=== PATIENT | male | born 1935 | race Caucasian/White ===

== ENCOUNTER 2021-04-18 08:16 | Observation (INO) ==
[2021-04-18] MEDS ORDERED: DIAZEPAM 5 MG TABLET PO ONE (08:35)
[2021-04-18] MEDS ORDERED: LIDOCAINE PATCH TOPICAL ONE (08:35)
--- NOTE | 2021-04-18 08:42 | Emergency Department Note ---
HPI General Chief complaint: Fall Stated complaint: Low back pain, fall off ladder Time Seen by Provider: 04/18/21 08:25 Source: patient and EMS Mode of arrival: EMS Limitations: no limitations History of Present Illness HPI Narrative: 85-year-old male with no past medical history presenting with low back pain. Patient states he was chipping ice off the roof and fell off a ladder about a day and a half ago. He landed on his back. Denies hitting his head or losing consciousness. States he has had persistent back pain since then. He has tried using ice packs and heating pads with minimal relief. States that at times he has to crawl to get around his house. No headache, blurry vision, neck pain, chest pain, shortness of breath, numbness, weakness, paresthesias, or bowel or bladder incontinence. States the only other thing he is taken for pain is aspirin. No other complaints. Related Data Home Medications Medication Instructions Recorded Confirmed aspirin 325 mg tablet (Lite Coat 325 mg PO DAILY 08/23/16 08/23/16 Aspirin) omeprazole 20 mg tablet,delayed 20 mg PO PRN PRN 08/23/16 08/23/16 release Allergies Allergy/AdvReac Type Severity Reaction Status Date / Time No Known Drug Allergies Allergy Verified 04/18/21 08:17 Review of Systems ROS ROS Narrative: Narrative: Constitutional: Denies fever or chills Eyes: Denies vision change ENT ED: Denies throat pain Cardiovascular: Denies chest pain or palpitations Respiratory: Denies shortness of breath or cough Gastrointestinal: Denies abdominal pain, nausea or vomiting Genitourinary: Denies dysuria, frequency or hematuria Musculoskeletal: Reports back pain; Denies joint swelling Integumentary: Denies rash Neurological: Denies headache, weakness, numbness, paresthesias or dizziness Psychiatric: Denies anxiety Endocrine: Denies fatigue Hematological/Lymphatic: Denies easy bleeding PFSH Narrative Patient History Narrative: Narrative: Medical/Surgical/Family History All Active Problems (Updated 04/18/21 @ 17:00 by Armin Payan MD) Nerve injury (Acute) Compression fracture of T11 vertebra (Acute) Fracture of transverse process of thoracic vertebra (Acute) Medical History (Updated 04/18/21 @ 17:00 by Armin Payan MD) Nerve injury Social History Smoking Status: Never smoker Exam Narrative Narrative: Narrative: General Limitations: no limitations General appearance: Present alert and in no apparent distress Head Head: Present atraumatic and normocephalic Eye Eye: Present normal appearance, PERRL and EOMI; Absent scleral icterus, conjunctival injection or nystagmus ENT ENT: Present mucous membranes moist Neck Neck: Present normal inspection, full ROM and trachea midline; Absent tenderness Chest Chest: Present symmetric chest wall rise Respiratory Respiratory: Present normal lung sounds bilaterally; Absent respiratory distress, wheezes, stridor or accessory muscle use Cardiovascular Cardiovascular: Present regular rate and normal rhythm; Absent systolic murmur or diastolic murmur Adbominal Abdominal: Present soft; Absent distention, tenderness, guarding, rebound or ri gidity Extremities Extremities: Present full ROM and other (Mild ecchymosis noted overlying the left upper arm; no tenderness to palpation, full range of motion of left shoulder and left elbow); Absent pretibial edema Back Back: Present normal inspection, L-S tenderness and spinous process tenderness; Absent CVA tenderness (R), CVA tenderness (L), straight leg raise (R) or straight leg raise (L) Neurological Neurological: Present alert, oriented X3 and CN II-XII intact; Absent motor sensory deficit Expanded Neurological Patient oriented to: Present person, place and time Speech: Absent expressive aphasia or dysarthria CRANIAL NERVES: EOM function (II, III, IV, ): Normal, facial sensation (V): Normal, facial palsy (VII): Normal, gag reflex (IX): Normal, spinal accessory function (XI): Normal and tongue deviation (XII): Normal CEREBELLAR FUNCTION: finger to nose: Normal Motor strength - LUE: 5/5 Motor strength - RUE: 5/5 Motor strength - LLE: 5/5 Motor strength - RLE: 5/5 UPPER MOTOR NEURON EXAM: matilda neglect: Normal SENSORY EXAM UPPER EXTREMITY: Normal: light touch SENSORY EXAM LOWER EXTREMITY: Normal: light touch Coma Scale Eye Opening: Spontaneous Coma Scale Motor Response: Obeys Commands Coma Scale Verbal Response: Oriented Coma Scale Total: 15 Psychiatric Psychiatric: Present normal affect and normal mood Skin Skin: Present warm (WNL) and dry Course Vital Signs Vital signs: Vital Signs Temperature 97.7 F 04/18/21 08:17 Pulse Rate 63 04/18/21 08:17 Respiratory Rate 16 04/18/21 08:17 Pulse Oximetry (%) 97 04/18/21 08:17 Temperature 97.7 F 04/18/21 08:17 Pulse Rate 56 L 04/18/21 16:56 Respiratory Rate 16 04/18/21 08:17 Blood Pressure 109/54 04/18/21 16:56 Pulse Oximetry (%) 94 04/18/21 16:56 MDM MDM Narrative Medical decision making narrative: 85-year-old male presenting with low back pain after fall. No neurologic deficits on exam, no bowel or bladder incontinence. Vital signs are normal. Will provide pain control, x-ray of the lumbar spine, and reevaluate. 1530: Patient unable to ambulate or get up on his own due to pain in his lower back, despite morphine, valium, and lidoderm patch. CT of the lumbar spine obtained which shows acute wedge compression fracture at T11, transverse process fractures at T9-T11, and spinous process fractures at T9 and T10. The fractures appear stable on CT. Given that patient cannot perform his ADLs right now due to pain, will attempt to find a nursing home facility for placement. 1630: Awaiting placement, will sign out to oncjoann TOLENTINO, Dr. Mcarthur. ED POC Tests ED POC Tests: RADU - SARS Antigen Negative Radiology Data Radiology results reviewed: Yes I reviewed the patient's radiology results. Radiology results narrative: Ordering Physician:Armin Payan M.D. Date of Service:04/18/21 Procedure(s):CT lumbar spine wo con History: Fell off ladder, compression fracture at T11 of undetermined age TECHNIQUE: The spine was imaged without contrast in axial plane from T9 to the lower sacrum. Sagittal and coronal reformats were created. The radiation exposure was limited using dose reduction technology. There are acute nondisplaced fractures involving the transverse processes bilaterally at T9, T10 and right side at T11. There is also an acute anterior wedge compression fracture with depression of superior endplate of T11. There is less than 20% loss in height. There is no retropulsion of bone into the central canal. There is low-level edema in the soft tissues anterior and lateral to this compressed vertebra. No hematoma is present. There are also longitudinally oriented fractures in the spinous processes of T9 and T10. No fracture is present in the lumbar spine. Mild spinal canal stenosis is present at T10-11 due to arthritis in the facets and hypertrophy of the ligamentum flavum. At T12-L1 there is mild spinal canal stenosis due to spurs and hypertrophy of ligamentum flavum. Similar finding is present at L2-3. Severe spinal canal stenosis is present at L3-4 and L4-5 due to large spurs are severe arthritis in the facets and hypertrophy of the ligamentum flavum. At L4-5 there is grade 1 spondylolisthesis due to severe arthritis in the facets. There is a medium-sized broad-based bulge and there is severe spinal canal and bilateral neural foraminal stenosis. The L5-S1 level has no central canal stenosis but there is arthritis in the facets causing narrowing of the foramina. Severe disc space narrowing is present at L1-L2, L2-3 and L3-4 with moderate narrowing at T12-L1. Severe pulmonary fibrosis is present in both lung bases. There is honeycombing in the periphery of the lung bases. Distal abdominal aorta is mildly dilated and measures 2.6 x 2.7 cm. IMPRESSION: Acute mild wedge compression fracture at T11 Fracture transverse processes at T9 T10 T11 and fractured spinous processes at T9 and T10 Severe spinal canal stenosis at L2-3, L3-4 and L4-[address] Payan was called with the report Interpreted and Authenticated by: Dawit Osman 04/18/21 Discharge Plan Patient/Caregiver Discharge Instructions Pt seen by ACTIVITY THERAPY TEACHER/PA only: No Clinical Impression: Compression fracture of T11 vertebra, Fracture of transverse process of thoracic vertebra Patient Disposition: Still a Patient Condition: Fair Follow up with: No,PCP [Referring] - Prescriptions: No Action aspirin [Lite Coat Aspirin] 325 MG Tablet 325 mg PO DAILY 0RF omeprazole 20 MG Tablet.Dr 20 mg PO PRN PRN (Reason: reflux) 0RF
--- NOTE | 2021-04-18 09:02 | XRay Report ---
HISTORY: Fell off ladder on Wednesday with worsening low back pain FINDINGS: There is mild anterior wedge compression fracture involving the superior endplate of T11. This was not present on the prior abdomen CT done on 06/28/10 and is of undetermined age. No other fracture is present. 9 mm grade 1 spondylolisthesis is present at L4-5 due to severe arthritis in the facets. This is a chronic stable finding. Moderate disc space narrowing is present at T12-L1, L1-L2, L2-3 and there is moderate narrowing at L3-4. A levoscoliotic curvature is present. Moderate size spurs have formed around the margins of the disc spaces. Large amount calcified plaque is present in the arteries throughout the abdomen and pelvis. IMPRESSION: Mild wedge compression fracture at T11 which is probably old. Severe degenerative disc disease at multiple levels Stable grade 1 spondylolisthesis at L4-5 Interpreted and Authenticated by: Dawit Osman 04/18/21
--- NOTE | 2021-04-18 11:43 | Cat Scan Report ---
History: Fell off ladder, compression fracture at T11 of undetermined age TECHNIQUE: The spine was imaged without contrast in axial plane from T9 to the lower sacrum. Sagittal and coronal reformats were created. The radiation exposure was limited using dose reduction technology. There are acute nondisplaced fractures involving the transverse processes bilaterally at T9, T10 and right side at T11. There is also an acute anterior wedge compression fracture with depression of superior endplate of T11. There is less than 20% loss in height. There is no retropulsion of bone into the central canal. There is low-level edema in the soft tissues anterior and lateral to this compressed vertebra. No hematoma is present. There are also longitudinally oriented fractures in the spinous processes of T9 and T10. No fracture is present in the lumbar spine. Mild spinal canal stenosis is present at T10-11 due to arthritis in the facets and hypertrophy of the ligamentum flavum. At T12-L1 there is mild spinal canal stenosis due to spurs and hypertrophy of ligamentum flavum. Similar finding is present at L2-3. Severe spinal canal stenosis is present at L3-4 and L4-5 due to large spurs are severe arthritis in the facets and hypertrophy of the ligamentum flavum. At L4-5 there is grade 1 spondylolisthesis due to severe arthritis in the facets. There is a medium-sized broad-based bulge and there is severe spinal canal and bilateral neural foraminal stenosis. The L5-S1 level has no central canal stenosis but there is arthritis in the facets causing narrowing of the foramina. Severe disc space narrowing is present at L1-L2, L2-3 and L3-4 with moderate narrowing at T12-L1. Severe pulmonary fibrosis is present in both lung bases. There is honeycombing in the periphery of the lung bases. Distal abdominal aorta is mildly dilated and measures 2.6 x 2.7 cm. IMPRESSION: Acute mild wedge compression fracture at T11 Fracture transverse processes at T9 T10 T11 and fractured spinous processes at T9 and T10 Severe spinal canal stenosis at L2-3, L3-4 and L4-[address] Payan was called with the report Interpreted and Authenticated by: Dawit Osman 04/18/21
[2021-04-18] MEDS ORDERED: morphine 4 MG/ML VIAL IV ONE ×3 (12:08→22:48)
--- NOTE | 2021-04-19 05:26 | Emergency Department Note ---
Course Vital Signs Vital signs: Vital Signs Temperature 36.5 C 04/18/21 08:17 Pulse Rate 63 04/18/21 08:17 Respiratory Rate 16 04/18/21 08:17 Pulse Oximetry (%) 97 04/18/21 08:17 Temperature 36.5 C 04/18/21 08:17 Pulse Rate 68 04/19/21 06:11 Respiratory Rate 16 04/18/21 08:17 Blood Pressure 118/79 04/19/21 06:01 Pulse Oximetry (%) 94 04/19/21 06:11 MDM MDM Narrative Medical decision making narrative: patient who presented to the previous physician found to have several spinal fractures after a fall off a ladder. He has intractable pain and the plan is to try and get him placed directly to assisted facility. Social work was unable to do that in time this evening,so he was signed out to me with anticip ated plan of further symptom control here in the ED as needed overnight and social work will once again try and attempt to place him tomorrow when they come back in. If unable at that time, patient will be admitted here tomorrow when a bed becomes available until placement can be arranged. On my evaluation patient was resting comfortably in bed after his previous analgesia but does confirm the pain is too much when attempting to get out of bed or ambulate around. Will be signed out to next physician at shift change. ED POC Tests ED POC Tests: RADU - SARS Antigen Negative Discharge Plan Patient/Caregiver Discharge Instructions Pt seen by OPERATING SYSTEMS PROGRAMMER/PA only: No Clinical Impression: Compression fracture of T11 vertebra, Fracture of transverse process of thoracic vertebra Patient Disposition: Still a Patient Condition: Fair Follow up with: No,PCP [Referring] - Prescriptions: No Action aspirin [Lite Coat Aspirin] 325 MG Tablet 325 mg PO DAILY 0RF omeprazole 20 MG Tablet.Dr 20 mg PO PRN PRN (Reason: reflux) 0RF
[2021-04-19] MEDS ORDERED: HYDROCODONE/APAP 7.5/325MG TABLET PO ONE (06:09)
[2021-04-19] MEDS ORDERED: morphine 4 MG/ML VIAL IV ONE (08:48)
--- NOTE | 2021-04-19 08:58 | Emergency Department Note ---
Course Course Course Narrative: I assumed care from Dr. Mcarthur at the change of shift. I evaluated the patient in person at 8:57 AM. He is sitting in a chair awake and alert in no acute distress. He has been working with physical therapy and has been able to ambulate a few steps with a walker but is still unable to perform his activities of daily living to the extent necessary for him to return home. We will continue to work on pain control and seek possible rehab placement. Patient is agreeable with the plan. Vital Signs Vital signs: Vital Signs Temperature 97.7 F 04/18/21 08:17 Pulse Rate 63 04/18/21 08:17 Respiratory Rate 16 04/18/21 08:17 Pulse Oximetry (%) 97 04/18/21 08:17 Temperature 97.7 F 04/18/21 08:17 Pulse Rate 72 04/19/21 08:37 Respiratory Rate 16 04/18/21 08:17 Blood Pressure 155/76 04/19/21 11:31 Pulse Oximetry (%) 96 04/19/21 08:37 MDM MDM Narrative Medical decision making narrative: Patient continued to have significant pain limiting his ability to ambulate in the emergency department. Has he is unsafe for discharge and there are no subacute rehab beds available we will admit to the hospital for further t reatment. The patient is agreeable with the plan. I discussed the patient's history examination and diagnostic findings with Dr. Stephenson, who agrees with the plan of care and accepts admission. Lab Data Result diagrams: 04/19/21 12:52 04/19/21 12:52 Labs: Lab Results 04/19/21 Range/Units 12:52 WBC 9.6 (4.5-11.0) K/mcL RBC 4.25 L (4.63-6.08) M/mcL Hgb 13.7 (13.7-17.5) g/dL Hct 39.4 L (40.1-51.0) % MCV 92.7 (80.0-100.0) fL MCH 32.2 (26.0-34.0) pg MCHC 34.8 (31.0-36.0) g/dL RDW 12.3 (11.5-14.5) % Plt Count 166 (140-440) K/mcL MPV 10.2 (7.4-10.4) fL Neut % (Auto) 79.0 H (38.0-78.0) % Lymph % (Auto) 10.7 L (15.5-49.0) % Snyder % (Auto) 9.5 (1.0-12.0) % Eos % (Auto) 0.3 (0.0-7.0) % Baso % (Auto) 0.5 (0.0-2.0) % Lymph # (Auto) 1.03 L (1.50-4.80) K/mcL Snyder # (Auto) 0.91 H (0.10-0.90) K/mcL Eos # (Auto) 0.03 (0.00-0.70) K/mcL Baso # (Auto) 0.05 (0.00-0.30) K/mcL Absolute Neutrophils 7.60 (1.80-8.00) K/mcL ED POC Tests ED POC Tests: RADU - SARS Antigen Negative Discharge Plan Patient/Caregiver Discharge Instructions Pt seen by OFFICE SECRETARY/PA only: No Clinical Impression: Compression fracture of T11 vertebra, Fracture of transverse process of thoracic vertebra Patient Disposition: Xfer As Inpt ([facility]) Condition: Fair Follow up with: No,PCP [Referring] - Prescriptions: No Action aspirin [Lite Coat Aspirin] 325 MG Tablet 325 mg PO DAILY 0RF omeprazole 20 MG Tablet.Dr 20 mg PO PRN PRN (Reason: reflux) 0RF
[2021-04-19 13:36] LABS: Basophils # (Auto) 0.05 K/mcL (0.00-0.30); Basophils % (Auto) 0.5 % (0.0-2.0); Eosinophils # (Auto) 0.03 K/mcL (0.00-0.70); Eosinophils % (Auto) 0.3 % (0.0-7.0); Hematocrit 39.4 % (40.1-51.0); Hemoglobin 13.7 g/dL (13.7-17.5); Lymphocytes # (Auto) 1.03 K/mcL (1.50-4.80); Lymphocytes % (Auto) 10.7 % (15.5-49.0); Mean Cell Volume 92.7 fL (80.0-100.0); Mean Corpuscular HGB Conc 34.8 g/dL (31.0-36.0); Mean Platelet Volume 10.2 fL (7.4-10.4); Monocytes # (Auto) 0.91 K/mcL (0.10-0.90); Monocytes % (Auto) 9.5 % (1.0-12.0); Platelet Count 166 K/mcL (140-440); RBC 4.25 M/mcL (4.63-6.08); Red Cell Distribution Width 12.3 % (11.5-14.5); WBC 9.6 K/mcL (4.5-11.0)
[2021-04-19] MEDS ORDERED: LIDOCAINE PATCH TOPICAL ONE (13:55)
--- NOTE | 2021-04-19 14:00 | Internal Med History&Physical ---
HPI History of Present Illness Patient information: Note initiated : 04/19/21 at 1:53 pm Service Date, if different from initiated Date: [] Patient: Kelby Parra 85 y/o M admitted on for Low back pain, fall off ladder. Chief Complaint: [] History of present illness: Mr. Parra is a 85 year old male who presented to the ED for severe back pain that suddenly occurred when he fell off a ladder while he was cleaning icicles from his roof. A large piece of ice hit him in the chest and caused him to fall to the ground. The patient came to the emergency department where he was found to have an acute compression fracture of T11 as well as bilateral transverse processes fractures of T9, T10, and right side transverse process fracture of T11. The patient was provided with analgesics for pain control, hospital medicine was asked to admit the patient for pain control and disposition planning. Review of systems Constitutional: no fever, fatigue, or weight loss Eyes: no vision changes or pain Cardiovascular: no chest pain, no palpitations Respiratory: no cough or dyspnea Gastrointestinal: no abdominal pain, no nausea, vomiting, or diarrhea Genitourinary: no dysuria or difficulty voiding Musculoskeletal: no arthralgia or myalgia Integumentary: no skin lesion or wound Neurological: no focal weakness or numbness Psychiatric: no anxiety or depression Physical Exam Head: Atraumatic, normal inspection. Eyes: normal appearance, no scleral icterus. Neck: full ROM Respiratory: no respiratory distress. Cardiovascular: normal rate and rhythm, S1, S2. GI/Abdominal: soft, nontender, no guarding. Extremities: full range of motion, nontender. Neurological: CN II-XII intact, intact motor, intact sensation. Psychiatric: normal mood. Skin: warm, normal color PFSH PFSH All Active Problems (Updated 04/18/21 @ 17:00 by Armin Payan MD) Nerve injury (Acute) Compression fracture of T11 vertebra (Acute) Fracture of transverse process of thoracic vertebra (Acute) Medical History (Updated 04/18/21 @ 17:00 by Armin Payan MD) Nerve injury MEDS/ALLERGIES Home Medications and Allergies Home Medications Medication Instructions Recorded Confirmed Type aspirin 325 mg tablet (Lite Coat 325 mg PO DAILY 08/23/16 04/19/21 History Aspirin) omeprazole 20 mg tablet,delayed 20 mg PO PRN PRN 08/23/16 04/19/21 History release meloxicam 7.5 mg tablet 7.5 mg PO QDAY PRN 04/19/21 04/19/21 History multivit with minerals-iron 18 1 tab PO QDAY 04/19/21 04/19/21 History mg-folic ac 400 mcg-vit K 25 mcg tablet (Adults Multivitamin) vitamin B complex 1 cap PO QDAY 04/19/21 04/19/21 History Allergies Allergy/AdvReac Type Severity Reaction Status Date / Time No Known Drug Allergies Allergy Verified 04/18/21 08:17 EXAM Constitutional Vitals: Temp Pulse Resp BP Pulse Ox 97.7 F 54 L 16 135/75 93 04/18/21 08:17 04/19/21 13:16 04/18/21 08:17 04/19/21 13:16 04/19/21 13:16 DATA Data Completed and Pending Labs: Labs from last 24 hours 04/19/21 04/19/21 12:52 12:52 WBC 9.6 RBC 4.25 L Hgb 13.7 Hct 39.4 L MCV 92.7 MCH 32.2 MCHC 34.8 RDW 12.3 Plt Count 166 MPV 10.2 Neut % (Auto) 79.0 H Lymph % (Auto) 10.7 L Gosper % (Auto) 9.5 Eos % (Auto) 0.3 Baso % (Auto) 0.5 Lymph # (Auto) 1.03 L Gosper # (Auto) 0.91 H Eos # (Auto) 0.03 Baso # (Auto) 0.05 Absolute Neutrophils 7.60 Sodium Pending Potassium Pending Chloride Pending Carbon Dioxide Pending Anion Gap Pending BUN Pending Creatinine Pending GFR Calculation Pending Glucose Pending Calcium Pending A/P Narrative A/P Narrative: Assessment: 85 year old male admitted for intractable back pain after a fall off a ladder and found to have acute bilateral transverse process fractures of T9,T10,T11 and an acute compression fracture of T11. CT of the thoracic and lumbar spine suggested severe pulmonary fibrosis. #Intractable back pain #Acute T11 compression fracture #Acute bilateral transverse process fractures of T9, T10, T11 #Probable pulmonary fibrosis (severe) #Severe spinal stenosis #GERD Plan -Multimodal analgesics. -Continue PPI. -Physical therapy -Medical reconciliation -Disposition: probably SNF, pulmonology referral for outpatient workup pulmonary fibrosis as suggested by captured pulmonary images on the CT scan of the lumbar spine. Time Spent With Patient Time: Total time spent is greater than 50% in coordination of care (as documented) at patient's floor/unit and/or counseling patient:
[2021-04-19 14:02] LABS: Blood Urea Nitrogen 26 mg/dL (8-23); Calcium 8.5 mg/dL (8.6-10.4); Carbon Dioxide 25 mmol/L (22-30); Chloride 98 mmol/L (96-108); Glomerular Filtration Rate 68; Glucose 136 mg/dL (70-105)
[2021-04-19] MEDS ORDERED: ACETAMINOPHEN 325 MG TABLET PO SCH (15:15)
[2021-04-19] MEDS ORDERED: ONDANSETRON 4 MG/2 ML VIAL IV PRN (15:15)
[2021-04-19] MEDS ORDERED: KETOROLAC 30 MG/ML VIAL IV SCH ×2 (15:15→18:15)
[2021-04-19] MEDS: HYDROmorphone 0.5 MG/0.5 ML SYRINGE IV PRN ×2 (15:23→21:12)
[2021-04-19] MEDS: 0.9 % SODIUM CHLORIDE 10 ML SYRINGE IV SCH ×2 (15:36→22:21)
[2021-04-19] MEDS: ACETAMINOPHEN 500 MG TABLET PO SCH ×2 (15:36→20:27)
[2021-04-19] MEDS ORDERED: POLYETHYLENE GLYCOL 3350 17 GM PACKET PO PRN (17:59)
[2021-04-19] MEDS ORDERED: KETOROLAC 30 MG/ML VIAL IV PRN (18:00)
[2021-04-19] MEDS ORDERED: POLYETHYLENE GLYCOL 3350 17 GM PACKET PO SCH (18:15)
[2021-04-19] MEDS: DOCUSATE SODIUM 100 MG CAPSULE PO SCH (20:25)
[2021-04-19] MEDS: SENNOSIDES 1 TABLET PO SCH (20:28)
[2021-04-19] MEDS ORDERED: SENNOSIDES 1 TABLET PO SCH (21:00)
[2021-04-19] MEDS: amLODIPine 5 MG TABLET PO SCH (22:21)
[2021-04-20] MEDS: 0.9 % SODIUM CHLORIDE 10 ML SYRINGE IV SCH ×3 (06:25→21:45)
[2021-04-20] MEDS: OMEPRAZOLE 20 MG CAPSULE PO SCH (07:04)
[2021-04-20] MEDS: oxyCODONE HCL 5 MG TABLET PO PRN (07:04)
[2021-04-20] MEDS: ACETAMINOPHEN 500 MG TABLET PO SCH ×3 (08:53→20:33)
[2021-04-20] MEDS: amLODIPine 5 MG TABLET PO SCH (08:53)
[2021-04-20] MEDS: DOCUSATE SODIUM 100 MG CAPSULE PO SCH ×2 (08:53→20:33)
[2021-04-20] MEDS: SENNOSIDES 1 TABLET PO SCH ×2 (08:54→20:33)
--- NOTE | 2021-04-20 09:54 | Internal Med Progress Note ---
SUBJECTIVE Subjective Patient information: Note initiated : 04/20/21 at 9:51 am Service Date, if different from initiated Date: [] Patient: Kelby Parra 85 y/o M admitted on 04/19/21 for Low back pain, fall off ladder. Chief Complaint: [] Interval history: Mr. Parra is a 85 year old male who presented to the ED for severe back pain that suddenly occurred when he fell off a ladder while he was cleaning icicles from his roof. A large piece of ice hit him in the chest and caused him to fall to the ground. The patient came to the emergency department where he was found to have an acute compression fracture of T11 as well as bilateral transverse processes fractures of T9, T10, and right side transverse process fracture of T11. The patient was provided with analgesics for pain control, hospital medicine was asked to admit the patient for pain control and disposition planning. Review of systems: positive for back pain, denies constipation Physical Exam Head: Atraumatic, normal inspection. Eyes: normal appearance, no scleral icterus. Neck: full ROM Respiratory: no respiratory distress. Cardiovascular: normal rate and rhythm, S1, S2. GI/Abdominal: soft, nontender, no guarding. Extremities: full range of motion, nontender. Neurological: CN II-XII intact, intact motor, intact sensation. Psychiatric: normal mood. Skin: warm, normal color Constitutional Vitals: Vital Signs Temp Pulse Resp BP Pulse Ox 98.0 F 62 18 136/80 94 04/20/21 08:00 04/20/21 08:00 04/20/21 08:00 04/20/21 08:00 04/20/21 08:00 Period Temp Pulse Resp BP Sys/Hinojosa Pulse Ox Last 24 Hr 97 F-98.9 F 54-84 18-18 131-183/64-103 93-98 Intake and Output 04/19/21 04/20/21 04/20/21 21:59 05:59 13:59 Intake Total 360 Output Total 200 300 Balance -200 60 Weight 70.08 kg Intake & Output: Intake & Output 04/19/21 04/20/21 04/20/21 21:59 05:59 13:59 Intake Total 360 Output Total 200 300 Balance -200 60 Weight 70.08 kg Intake: Oral 360 Output: Void Amount 200 300 Other: Meal Breakfast Percent of Meal Consumed 100% Urine Appearance Clear Clear Urine Color Light Saadia Dark Yellow Urine Odor Normal OBJ DATA Labs CBC & Chem 7: 04/19/21 12:52 04/19/21 12:52 Labs: Abnormal Lab Results 04/19/21 04/19/21 12:52 12:52 RBC 4.25 L Hct 39.4 L Neut % (Auto) 79.0 H Lymph % (Auto) 10.7 L Lymph # (Auto) 1.03 L [place] # (Auto) 0.91 H BUN 26 H Glucose 136 H Calcium 8.5 L Meds: Medications Acetaminophen (Acetaminophen 500 Mg Tablet) 1,000 mg PO TID [facility]; Protocol Last Admin: 04/20/21 08:53 Dose: 1,000 mg Documented by: Amlodipine Besylate (Amlodipine 5 Mg Tablet) 5 mg PO DAILY [facility] Last Admin: 04/20/21 08:53 Dose: 5 mg Documented by: Docusate Sodium (Docusate Sodium 100 Mg Capsule) 100 mg PO BID [facility] Last Admin: 04/20/21 08:53 Dose: 100 mg Documented by: Ibuprofen (Ibuprofen 200 Mg Tablet) 400 mg PO Q4HP PRN; Protocol PRN Reason: Per Pain Protocol Omeprazole (Omeprazole 20 Mg Capsule) 20 mg PO ACB [facility] Last Admin: 04/20/21 07:04 Dose: 20 mg Documented by: Ondansetron HCl (Ondansetron 4 Mg/2 Ml Vial) 4 mg IV Q6HP PRN PRN Reason: Nausea And Vomiting Oxycodone HCl (Oxycodone Hcl 5 Mg Tablet) 5 mg PO Q4HP PRN; Protocol PRN Reason: Per Pain Protocol Last Admin: 04/20/21 07:04 Dose: 5 mg Documented by: Polyethylene Glycol (Polyethylene Glycol 3350 17 Gm Packet) 17 gm PO DAILYP [facility] Senna (Sennosides 1 Tablet) 2 tab PO BID [facility] Last Admin: 04/20/21 08:54 Dose: 2 tab Documented by: Sodium Chloride (0.9 % Sodium Chloride 10 Ml Syringe) 10 ml IV Q8 [facility] Last Admin: 04/20/21 06:25 Dose: Not Given Documented by: A/P Narrative A/P Narrative: Assessment: 85 year old male admitted for intractable back pain after a fall off a ladder and found to have acute bilateral transverse process fractures of T9,T10,T11 and an acute compression fracture of T11. CT of the thoracic and lumbar spine suggested severe pulmonary fibrosis. #Intractable back pain #Acute T11 compression fracture #Acute bilateral transverse process fractures of T9, T10, T11 #Probable pulmonary fibrosis (severe) #Severe spinal stenosis #GERD Plan -Multimodal analgesics with schedule tylenol, ibuprofen prn, oxycodone prn. -Discontinue Toradol and Dilaudid. -Continue PPI. -TLSO brace. -Physical therapy -Disposition: probably SNF, pulmonology referral for outpatient workup pulmonary fibrosis as suggested by captured pulmonary images on the CT scan of the lumbar spine. Time Spent With Patient Time: Total time spent is greater than 50% in coordination of care (as documented) at patient's floor/unit and/or counseling patient: QUALITY Stroke Symptom Onset Unknown: No VTE Deep Vein Thrombosis/Pulmonary Embolism Present on Admission: No
[2021-04-20] MEDS: IBUPROFEN 200 MG TABLET PO PRN ×2 (12:02→20:33)
[2021-04-21] MEDS: oxyCODONE HCL 5 MG TABLET PO PRN ×2 (03:37→07:43)
[2021-04-21] MEDS: 0.9 % SODIUM CHLORIDE 10 ML SYRINGE IV SCH (06:13)
[2021-04-21] MEDS: OMEPRAZOLE 20 MG CAPSULE PO SCH (07:43)
[2021-04-21] MEDS ORDERED: IBUPROFEN 200 MG TABLET PO PRN (08:17)
[2021-04-21] MEDS ORDERED: tiZANidine 4 MG TABLET PO SCH (09:00)
[2021-04-21] MEDS: ACETAMINOPHEN 500 MG TABLET PO SCH (09:02)
[2021-04-21] MEDS: amLODIPine 5 MG TABLET PO SCH (09:02)
[2021-04-21] MEDS: SENNOSIDES 1 TABLET PO SCH (09:02)
[2021-04-21] MEDS: DOCUSATE SODIUM 100 MG CAPSULE PO SCH (09:02)
--- NOTE | 2021-04-21 10:51 | Discharge Summary ---
Discharge Provider Provider Patient information: Note initiated : 04/21/21 at 10:47 am Service Date, if different from initiated Date: [] Patient: Kelby Parra 85 y/o M admitted on 04/19/21 for Low back pain, fall off ladder. Chief Complaint: [] Date of admission: 04/19/21 15:10 Discharge date: 04/21/21 Primary care physician: Dave Logan Consults: 04/19/21 Consult to Physician [CONS] Stat Comment: Consulting Provider: Jimmie Stephenson Reason For Exam: Physician to Consult Discharge Meds Discharge Medications Home Medications omeprazole 20 mg tablet,delayed release 20 mg PO PRN PRN 08/23/16 [History Conf irmed 04/19/21 Last Taken Unknown] meloxicam 7.5 mg tablet 7.5 mg PO QDAY PRN 04/19/21 [History Confirmed 04/19/21 Last Taken Unknown] multivit with minerals-iron 18 mg-folic ac 400 mcg-vit K 25 mcg tablet (Adults Multivitamin) 1 tab PO QDAY 04/19/21 [History Confirmed 04/19/21 Last Taken Unknown] vitamin B complex 1 cap PO QDAY 04/19/21 [History Confirmed 04/19/21 Last Taken Unknown] acetaminophen 500 mg tablet 1,000 mg PO TID 15 Days #30 tab 04/21/21 [Rx Last Taken Unknown] amlodipine 5 mg tablet 5 mg PO DAILY #30 tab 04/21/21 [Rx Last Taken Unknown] oxycodone 5 mg tablet 5 mg PO Q4HP PRN 7 Days #10 tab 04/21/21 [Rx Last Taken Unknown] polyethylene glycol 3350 17 gram oral powder packet (HealthyLax) 17 g PO DAILYP 30 Days #30 ea 04/21/21 [Rx Last Taken Unknown] sennosides 8.6 mg tablet (Senna Lax) 17.2 mg PO BID #60 tab 04/21/21 [Rx Last Taken Unknown] tizanidine 4 mg tablet 2 mg PO TID 5 Days #8 tab 04/21/21 [Rx Last Taken Unknown] COURSE Hospital Course Hospital course: Mr. Parra is a 85 year old male who presented to the ED for severe back pain that suddenly occurred when he fell off a ladder while he was cleaning icicles from his roof. A large piece of ice hit him in the chest and caused him to fall to the ground. The patient came to the emergency department where he was found to have an acute compression fracture of T11 as well as bilateral transverse processes fractures of T9, T10, and right side transverse process fracture of T11. The patient was provided with analgesics for pain control, hospital medicine was asked to admit the patient for pain control and disposition planning. 04/21 Discharged to SNF for rehab. New medications include scheduled tylenol, prn oxycodone, tizanidine, and norvasc for elevated blood pressure. Continued meloxicam prn as before as well as the other home medications except high dose aspirin. Will need to continue TLSO brace when out of bed. Pulmonology referral to evaluate for findings of pulmonary fibrosis noted on the CT scan images. Physical Exam Head: Atraumatic, normal inspection. Eyes: normal appearance, no scleral icterus. Neck: full ROM Respiratory: no respiratory distress. Cardiovascular: normal rate and rhythm, S1, S2. GI/Abdominal: soft, nontender, no guarding. Extremities: TLSO brace, full range of motion, nontender. Neurological: CN II-XII intact, intact motor, intact sensation. Psychiatric: normal mood. Skin: warm, normal color Discharge diagnosis: compression fracture of T11 Secondary discharge diagnosis: Transverse process factures involving T9, T10, T11 Time Spent with Patient Time attestation: Total time spent providing and/or coordinating discharge services: EXAM Constitutional Vitals: Temp Pulse Resp BP Pulse Ox 97.6 F 69 20 186/103 93 04/21/21 07:25 04/21/21 07:25 04/21/21 07:25 04/21/21 07:25 04/21/21 07:25 Discharge Plan Patient/Caregiver Discharge Instructions Activity: as per physical therapy Diet: Regular Diet Prescriptions: New acetaminophen 500 mg Tablet 1,000 mg PO TID 15 Days Qty: 30 0RF oxycodone 5 mg Tablet 5 mg PO Q4HP PRN (Reason: Per Pain Protocol) 7 Days Qty: 10 0RF sennosides [Senna Lax] 8.6 mg Tablet 17.2 mg PO BID Qty: 60 0RF polyethylene glycol 3350 [HealthyLax] 17 gram Powder In Packet 17 g PO DAILYP 30 Days Qty: 30 0RF tizanidine 4 mg Tablet 2 mg PO TID 5 Days Qty: 8 0RF amlodipine 5 mg Tablet 5 mg PO DAILY Qty: 30 3RF Continued omeprazole 20 MG tablet,delayed release (DR/EC) 20 mg PO PRN PRN (Reason: reflux) 0RF meloxicam 7.5 mg Tablet 7.5 mg PO QDAY PRN (Reason: Pain) 0RF vitamin B complex Capsule 1 cap PO QDAY 0RF Adults Multivitamin 18 mg iron-400 mcg-25 mcg Tablet 1 tab PO QDAY 0RF Discontinued aspirin [Lite Coat Aspirin] 325 MG tablet 325 mg PO DAILY 0RF Other Ambulatory Orders: OT Discharge Order (Routine) Location: None Selected Ordered By: Jimmie Stephenson Physical Therapy at Discharge - General (Routine) Location: None Selected Ordered By: Jimmie Stephenson Follow Up Plan Follow up with: Irina,PCP [Referring] - Patient Disposition: Xfer SNF Prognosis: Fair Overall status at discharge: patient is progressing back to baseline Discharge Orders: Discharge Order (Routine); Ordered 04/21/21 Ordered By: Jimmie Stephenson QUALITY VTE Deep Vein Thrombosis/Pulmonary Embolism Present on Admission: No
== END 2021-04-21 13:00 ==
LOC: MEDSUR 08:16 → ED 08:16 → MEDSUR 04-19 15:14
PROVIDERS: ADMIT Internal Medicine; ATTEND Internal Medicine

== ENCOUNTER 2021-06-05 15:34 | Observation (INO) ==
[2021-06-05] MEDS ORDERED: IOPAMIDOL 100 ML BOTTLE IV ONE (15:35)
--- NOTE | 2021-06-05 16:00 | Emergency Department Note ---
Neuro HPI General Chief Complaint: Neuro Symptoms/Deficit Stated Complaint: left leg weakness Time Seen by Provider: 06/05/21 15:55 Source: patient Mode of arrival: EMS History of Present Illness HPI Narrative: This is an 86-year-old male patient who presents from the interventional pain clinic with concerns for stroke. Patient had a thoracic epidural steroid injection at the T10-T11 level on the left side and had recovered well until he started having bilateral lower extremity weakness at about 3 PM this afternoon. He then became aphasic and had persistent left lower extremity weakness with systolic blood pressures in the 70s systolic per report from Dr. Rodas who did his procedure. Related Data Home Medications Medication Instructions Recorded Confirmed omeprazole 20 mg tablet,delayed 20 mg PO PRN PRN 08/23/16 06/02/21 release multivit with minerals-iron 18 1 tab PO QDAY 04/19/21 06/02/21 mg-folic ac 400 mcg-vit K 25 mcg tablet (Adults Multivitamin) vitamin B complex 1 cap PO QDAY 04/19/21 06/02/21 aspirin 325 mg tablet 650 mg PO QDAY tab 05/22/21 06/02/21 [id number] PO 05/22/21 06/02/21 [Excedrin Migraine] clemastine 2.68 mg tablet 2.68 mg PO QDAY PRN 05/22/21 06/02/21 meloxicam 15 mg tablet 15 mg PO QDAY PRN 05/22/21 06/02/21 oxycodone 5 mg tablet 5 mg PO QDAY PRN tab 06/02/21 06/02/21 tizanidine 2 mg capsule 2 mg PO QDAY PRN cap 06/02/21 06/02/21 Previous Rx's Medication Instructions Recorded amlodipine 5 mg tablet 5 mg PO DAILY #30 tab 04/21/21 sennosides 8.6 mg tablet (Senna 17.2 mg PO BID #60 tab 04/21/21 Lax) Allergies Allergy/AdvReac Type Severity Reaction Status Date / Time No Known Drug Allergies Allergy Verified 06/02/21 14:26 Review of Systems ROS ROS Narrative: [facility]ative: [facility] N[facility] Patient History Narrative: Narrative: Medical/Surgical/Family History All Active Problems (Updated 06/05/21 @ 20:17 by Jessica Paris PA-C) Brain TIA (Acute) Radiculopathy, thoracic region (Acute) Essential hypertension (Chronic) Wedge compression fracture of t9-t10 vertebra, subsequent encounter for fracture with routine healing (Chronic) Compression fracture (Chronic) Degenerative joint disease (DJD) of lumbar spine (Chronic) Postherpetic neuralgia (Chronic) Prediabetes (Chronic) Hyperlipidemia (Chronic) COPD (chronic obstructive pulmonary disease) (Chronic) History of skin cancer (Chronic) Overweight (Chronic) Osteoarthritis (Chronic) GERD (gastroesophageal reflux disease) (Chronic) Pulmonary fibrosis (Chronic) Fracture of transverse process of thoracic vertebra (Chronic) Compression fracture of T11 vertebra (Chronic) Nerve injury (Chronic) Medical History (Updated 06/05/21 @ 20:17 by Jessica Paris PA-C) Compression fracture T9, T10 and T11, acute Compression fracture of T11 vertebra COPD (chronic obstructive pulmonary disease) Degenerative joint disease (DJD) of lumbar spine Essential hypertension Fracture of transverse process of thoracic vertebra GERD (gastroesophageal reflux disease) History of skin cancer Hyperlipidemia Nerve injury Osteoarthritis Overweight Postherpetic neuralgia Prediabetes Pulmonary fibrosis Radiculopathy, thoracic region Wedge compression fracture of t9-t10 vertebra, subsequent encounter for fracture with routine healing Surgical History (Updated 05/22/21 @ 09:15 by Wendy Mann) History of appendectomy History of cataract extraction History of cholecystectomy History of inguinal hernia repair Family History (Updated 05/22/21 @ 09:18 by Wendy Mann) Father Heart disease Sister Ovarian cancer Uterine cancer Daughter Alcoholism CAD (coronary artery disease) Colon cancer Social History Smoking Status: Never smoker Alcohol Intake Frequency: does not drink Substance Use: does not use Exam Narrative Narrative: Narrative: Course Course Course Narrative: 86-year-old male presents with neurological symptoms after a epidural steroid injection procedure today Reevaluation(s) Reevaluation #1: NIH stroke scale is 1 for left lower extremity weakness. He is sent for urgent head CT. Obtain EKG Reevaluation #2: Head CT shows remote infarcts in the frontal and occipital regions, no new findings. Upon return from head CT the patient was able to elevate his leg off the bed and had felt his deficit had completely resolved. Patient's ABCD score for TIA is 6 with TIA duration greater than 60 minutes as it took approximately 1 hour for the left lower extremity weakness to resolve We will contact teleroke for recommendations Meanwhile we will obtain CTA of the head and neck Reevaluation #3: CTA of the head and neck shows no critical stenosis Stroke neurology feels that the patient would be appropriate for admission and dual antiplatelet therapy for 3 weeks given his risk factors. She does not feel strongly that this was true TIA given bilateral lower extremity weakness and aphasia on initial presentation which suggest 2 different territories. She is also reassured that his left lower extremity weakness has completely resolved. She felt that this was likely a postprocedural related event. No indication for MRI of the spine as patient's left lower extremity deficit is completely resolved which makes epidural hematoma much less likely. I spoke with Dr. Rodas who is fine with him starting Plavix and aspirin today. Consultations Consultation #1: Dr. Rolle, telestroke at [place]--> recommends observation, brain MRI and cardiac TTE, DAPT x3 weeks then stop Plavix Vital Signs Vital signs: Vital Signs Temperature 97.6 F 06/05/21 15:35 Pulse Rate 59 L 06/05/21 15:35 Respiratory Rate 16 06/05/21 15:35 Blood Pressure 143/87 06/05/21 15:35 Pulse Oximetry (%) 100 06/05/21 15:35 Temperature 97.6 F 06/05/21 15:35 Pulse Rate 80 06/05/21 19:56 Respiratory Rate 16 06/05/21 15:35 Blood Pressure 161/91 06/05/21 19:46 Pulse Oximetry (%) 96 06/05/21 19:56 [facility] Narrative Medical decision making narrative: TIA Initial NIH stroke scale score was 1. Symptoms have now completely resolved. CT of the head without contrast shows remote small infarcts in the left occipital and right frontal lobe, nothing new. CT of the head and neck shows no critical stenosis. I spoke with neurology, Dr. Rolle, and she recommends dual antiplatelet therapy for [address] Rodas is fine with patient starting his Plavix today. Patient's ABCD score is 6 and warrants admission for observation and further work-up. I have spoken with Dr. Aleman who has accepted t he patient for admission. Lab Data Result diagrams: 06/05/21 18:20 06/05/21 18:20 Labs: Lab Results 06/05/21 06/05/21 Range/Units 18:20 18:20 WBC 11.8 H (4.5-11.0) K/mcL RBC 4.78 (4.63-6.08) M/mcL Hgb 15.1 (13.7-17.5) g/dL Hct 43.9 (40.1-51.0) % MCV 91.8 (80.0-100.0) fL MCH 31.6 (26.0-34.0) pg MCHC 34.4 (31.0-36.0) g/dL RDW 12.3 (11.5-14.5) % Plt Count 214 (140-440) K/mcL MPV 9.9 (7.4-10.4) fL Neut % (Auto) 89.6 H (38.0-78.0) % Lymph % (Auto) 8.4 L (15.5-49.0) % Early % (Auto) 1.4 (1.0-12.0) % Eos % (Auto) 0.3 (0.0-7.0) % Baso % (Auto) 0.3 (0.0-2.0) % Lymph # (Auto) 1.00 L (1.50-4.80) K/mcL Early # (Auto) 0.16 (0.10-0.90) K/mcL Eos # (Auto) 0.04 (0.00-0.70) K/mcL Baso # (Auto) 0.03 (0.00-0.30) K/mcL Absolute Neutrophils 10.61 H (1.80-8.00) K/mcL Sodium 140 (133-145) mmol/L Potassium 4.4 (3.3-5.1) mmol/L Chloride 103 (96-108) mmol/L Carbon Dioxide 27 (22-30) mmol/L Anion Gap 10.0 (8.0-16.0) BUN 13 (8-23) mg/dL Creatinine 0.9 (0.7-1.2) mg/dL GFR Calculation 78 Glucose 125 H (70-105) mg/dL Calcium 9.0 (8.6-10.4) mg/dL Total Bilirubin 0.6 (0.1-1.0) mg/dL AST 16 (<40) U/L ALT 14 (<40) U/L Alkaline Phosphatase 80 (39-117) U/L Total Protein 7.1 (5.9-8.4) gm/dL Albumin 4.1 (3.2-5.2) gm/dL Globulin 3.0 (2.2-3.7) gm/dL Albumin/Globulin Ratio 1.4 (1.0-2.3) ED POC Tests ED POC Tests: RADU - SARS Antigen Negative Discharge Plan Patient/Caregiver Discharge Instructions Pt seen by [employer]ACT[employer] IN DIETETICS DIRECTOR/PA only: No Clinical Impression: Brain TIA Instructions: Transient Ischemic Attack (ED) Patient Disposition: Xfer As Inpt ([facility]) Follow up with: Yunior Rosario DO [Primary Care Provider] - Prescriptions: No Action aspirin 325 mg tablet 650 mg PO QDAY 0RF clemastine 2.68 mg tablet 2.68 mg PO QDAY PRN0RF Rx Instructions: give with food (meal/snack) [id number]-[id number] [Excedrin Migraine] PO 0RF meloxicam 15 mg tablet 15 mg PO QDAY PRN0RF oxycodone 5 mg tablet 5 mg PO QDAY PRN (Reason: Pain) 0RF tizanidine 2 mg capsule 2 mg PO QDAY PRN (Reason: Muscle Spasm) 0RF omeprazole 20 MG tablet,delayed release (DR/EC) 20 mg PO PRN PRN (Reason: reflux) 0RF vitamin B complex Capsule 1 cap PO QDAY 0RF Adults Multivitamin 18 mg iron-400 mcg-25 mcg Tablet 1 tab PO QDAY 0RF sennosides [Senna Lax] 8.6 mg Tablet 17.2 mg PO BID Qty: 60 0RF amlodipine 5 mg Tablet 5 mg PO DAILY Qty: 30 3RF
--- NOTE | 2021-06-05 16:23 | Emergency Department Note ---
ED Note Addendum Note Addendum: I evaluated and treated this patient in conjunction with the BETSY. I agree with their documented history, examination and medical decision making as documented separately. I personally saw the patient and performed a substantive portion of the visit including all aspects of the medical decision making. In addition: Upon my initial evaluation at approximately 4:20 PM, the patient has just returned from CT scan and notes that he now has normal muscle strength in his leg. Neuro -patient answers questions appropriately and is oriented to person, place, time and situation. There is no dysarthria or aphasia. There is no facial muscular asymmetry. Extraocular motion is intact. Tongue protrudes in the midline. Palate elevates symmetrically. Shoulder shrug is symmetric. Muscle strength is 5 out of 5 in all 4 extremities. Peripheral sensation is diminished to light touch over the medial right lower leg but otherwise intact bilaterally. There is no fhgv-bh-pusf abnormality. There is no gtsrqd-az-jwji abnormality. Given the rapid resolution of the patient's symptoms and the fact that he is completely free of back pain at this time, I think spinal epidural hematoma is extremely unlikely the cause of his symptoms. I am more concerned about possible TIA especially given the associated difficulty communicating which would obviously not be explained by spinal cord pathology. We will obtain carotid imaging to evaluate for possible stenosis.
--- NOTE | 2021-06-05 16:26 | Cat Scan Report ---
CLINICAL INFORMATION: Left lower extremity weakness COMPARISON: None. TECHNIQUE: 2.5 mm helical slices were obtained in the skull base to vertex. Following reconstruction, axial reformatted images were reviewed at bone and parenchymal windows. The exam was performed using radiation dose optimization techniques including, but not limited to, automated exposure control, adjustment of the mA and/or kV according to patient size and use of iterative reconstruction technique. FINDINGS: The ventricles, sulci, fissures, and cisterns are symmetrically large bowel mild age-related atrophy. There is moderate air in the cistern of the lamina terminalis supraoptic recess with smaller amounts appear cavernous region and the left sylvian cistern. There are small bubbles in the interpedicular and left ambient cistern. This likely resulted from recent spinal injection. There is also collection of air in the posterior third and in the atrium of the left lateral ventricle. No extra-axial fluid collections are identified. Small remote cortical-based infarct in the right frontal lobe near vertex and tiny remote cortical based infarct in the left occipital lobe appreciated. Mild chronic ischemic changes in the cerebral white matter appreciated There is no evidence of hemorrhage, mass effect, or edema. Bone windows show no osseous abnormality. IMPRESSION: Moderate extra-axial air in the anterior and left lateral basilar cisterns with a small amount in the posterior third ventricle and the atrium of the left lateral ventricle. This likely resulted from the recent spinal procedure and almost certainly insignificant. Small cortical-based infarct in the posterior right frontal lobe near vertex. Tiny cortical-based infarct in the left occipital lobe Interpreted and Authenticated by: Chris Urbina 06/05/21
--- NOTE | 2021-06-05 17:16 | Cat Scan Report ---
CLINICAL INFORMATION: COMPARISON: None. TECHNIQUE: 80 cc of Isovue-370 were injected intravenously , and using SmartPrep to maximize cerebral arterial opacification, 0.625 mm helical slices were obtained from the skull base through the cerebral vertex. Following reconstruction , sagittal, coronal and axial reformatted images were processed and reviewed at multiple windows and levels. 3D volume rendered and MIP images were acquired at a independent workstation. The exam was performed using radiation dose optimization techniques including, but not limited to, automated exposure control, adjustment of the mA and/or kV according to patient size and use of iterative reconstruction technique. FINDINGS: Moderate calcific atherosclerotic plaque present within the cavernous segments of both internal carotid arteries and intracranial vertebral arteries. The intracranial internal carotid, vertebral, basilar, anterior, middle and posterior cerebral arteries and their branches are well-opacified and normal in contour and caliber without significant stenosis, occlusion or other pathology. Superficial/deep cerebral veins and deep venous sinuses are widely patent IMPRESSION: No evidence of significant stenosis or occlusion Interpreted and Authenticated by: Chris Urbina 06/05/21
--- NOTE | 2021-06-05 17:19 | Cat Scan Report ---
CLINICAL INFORMATION: Transient aphasia COMPARISON: None. TECHNIQUE: 80 cc of Isovue-300 were injected intravenously followed by 40 cc of normal saline flush. Using SmartPrep, 0.625 helical slices were obtained from the thoracic aortic arch through the [place]. Following reconstruction, 2.5 mm sagittal, coronal and axial reformatted images were processed. MIPS , 3-D volume rendering and CPR images were also constructed. The exam was performed using radiation dose optimization techniques including, but not limited to, automated exposure control, adjustment of the mA and/or kV according to patient size and use of iterative reconstruction technique. FINDINGS: Mild fibrofatty calcific plaque is present in both carotid bifurcations and proximal ICA but no stenoses. The thoracic aortic arch is normal diameter with minimal intimal thickening and conventional aortic branching. The brachiocephalic, both subclavian, both common, internal and external carotid and both vertebral arteries are widely patent without significant abnormality. No soft tissue abnormality. IMPRESSION: Calcific plaque in both carotid bifurcations no stenoses. Interpreted and Authenticated by: Chris Urbina 06/05/21
[2021-06-05 18:58] LABS: Basophils # (Auto) 0.03 K/mcL (0.00-0.30); Basophils % (Auto) 0.3 % (0.0-2.0); Eosinophils # (Auto) 0.04 K/mcL (0.00-0.70); Eosinophils % (Auto) 0.3 % (0.0-7.0); Hematocrit 43.9 % (40.1-51.0); Hemoglobin 15.1 g/dL (13.7-17.5); Lymphocytes % (Auto) 8.4 % (15.5-49.0); Mean Cell Volume 91.8 fL (80.0-100.0); Mean Corpuscular HGB Conc 34.4 g/dL (31.0-36.0); Mean Platelet Volume 9.9 fL (7.4-10.4); Monocytes # (Auto) 0.16 K/mcL (0.10-0.90); Monocytes % (Auto) 1.4 % (1.0-12.0); Neutrophils % (Auto) 89.6 % (38.0-78.0); Platelet Count 214 K/mcL (140-440); RBC 4.78 M/mcL (4.63-6.08); Red Cell Distribution Width 12.3 % (11.5-14.5); WBC 11.8 K/mcL (4.5-11.0)
[2021-06-05 19:17] LABS: ALT/SGPT 14 U/L (<40); AST/SGOT 16 U/L (<40); Albumin 4.1 gm/dL (3.2-5.2); Albumin/Globulin Ratio 1.4 (1.0-2.3); Alkaline Phosphatase 80 U/L (39-117); Bilirubin,Total 0.6 mg/dL (0.1-1.0); Blood Urea Nitrogen 13 mg/dL (8-23); Carbon Dioxide 27 mmol/L (22-30); Chloride 103 mmol/L (96-108); Glomerular Filtration Rate 78; Glucose 125 mg/dL (70-105)
[2021-06-05] MEDS ORDERED: CLOPIDOGREL 75 MG TABLET PO ONE (19:31)
[2021-06-05] MEDS ORDERED: oxyCODONE HCL 5 MG TABLET PO PRN (20:41)
--- NOTE | 2021-06-05 21:07 | Internal Med History&Physical ---
HPI History of Present Illness Patient information: Note initiated : 06/05/21 at 8:59 pm Service Date, if different from initiated Date: [] Patient: Kelby Parra 86 y/o M admitted on for left leg weakness. Chief Complaint: [left leg numbness and weakness, aphasia ] Chief complaint: left leg numbness and weakness, aphasia History of present illness: Mr. Parra is a 86 year old M history of prediabetes, essential hypertensions, wedge compression fracture of T9-T10 vertebra, presenting with left leg numbness and weakness as well as dysphagia. Earlier today in the afternoon patients receiving outpatient spinal steroid injections for symptoms controlled for his regiment compression fracture of his T9-T10 vertebra. Right after the procedures, patient developed numbness and weakness of his left leg lasting for about an hour to an hour and a half, as well as aphasia for about 10 minutes before they resolve spontaneously. ABCD2 score of 6. Currently all her symptoms have been resolved. CT of the head without contrast did not show any acute intracranial pathologies. CTA of the head of the neck also did not show any stenosis of any of the arteries. Only to elevated risk factors, admission request were made for observations overnight for TIA. Constitutional Constitutional: Absent chills, excessive sweating, fatigue, fever(s) or weakness EENT Eyes: Absent blurry vision, change in vision, loss of vision or other visual disturbances Ears: Absent decreased hearing or tinnitus Nose, mouth and throat: Absent abnormal hearing, dry mouth, headache(s), nasal congestion or sore throat Cardiovascular Cardiovascular: Absent chest pain, chest pain at rest, edema, irregular heart rhythm or palpatations Respiratory Respiratory: Absent cough, dyspnea or wheezing Gastrointestinal Gastrointestinal: Absent abdominal pain, constipation, diarrhea, nausea or vomiting Musculoskeletal Musculoskeletal: Present muscle weakness and numbness; Absent back pain, deformity, limited range of motion or muscle cramps Integumentary Integumentary: Absent lesions, rash or wounds Neurological Neurological: Present abnormal speech, focal weakness and numbness; Absent headache(s) Psychiatric Psychiatric: Absent anxiety, depression or hallucinations PFSH PFSH All Active Problems (Updated 06/05/21 @ 20:17 by Jessica Paris PA-C) Brain TIA (Acute) Radiculopathy, thoracic region (Acute) Essential hypertension (Chronic) Wedge compression fracture of t9-t10 vertebra, subsequent encounter for fracture with routine healing (Chronic) Compression fracture (Chronic) Degenerative joint disease (DJD) of lumbar spine (Chronic) Postherpetic neuralgia (Chronic) Prediabetes (Chronic) Hyperlipidemia (Chronic) COPD (chronic obstructive pulmonary disease) (Chronic) History of skin cancer (Chronic) Overweight (Chronic) Osteoarthritis (Chronic) GERD (gastroesophageal reflux disease) (Chronic) Pulmonary fibrosis (Chronic) Fracture of transverse process of thoracic vertebra (Chronic) Compression fracture of T11 vertebra (Chronic) Nerve injury (Chronic) Medical History (Updated 06/05/21 @ 20:17 by Jessica Paris PA-C) Compression fracture T9, T10 and T11, acute Compression fracture of T11 vertebra COPD (chronic obstructive pulmonary disease) Degenerative joint disease (DJD) of lumbar spine Essential hypertension Fracture of transverse process of thoracic vertebra GERD (gastroesophageal reflux disease) History of skin cancer Hyperlipidemia Nerve injury Osteoarthritis Overweight Postherpetic neuralgia Prediabetes Pulmonary fibrosis Radiculopathy, thoracic region Wedge compression fracture of t9-t10 vertebra, subsequent encounter for fracture with routine healing Surgical History (Updated 05/22/21 @ 09:15 by Wendy Mann) History of appendectomy History of cataract extraction History of cholecystectomy History of inguinal hernia repair Family History (Updated 05/22/21 @ 09:18 by Wendy Mann) Father Heart disease Sister Ovarian cancer Uterine cancer Daughter Alcoholism CAD (coronary artery disease) Colon cancer Social History (Updated 06/02/21 @ 11:29 by Charlotte Finney) marital status: occupational status: retired physical activity: walking frequency: 3-4 times per week smoking status: Current every day smoker alcohol intake frequency: does not drink substance use type: does not use MEDS/ALLERGIES Home Medications and Allergies Home Medications Medication Instructions Recorded Confirmed Type omeprazole 20 mg tablet,delayed 20 mg PO PRN PRN 08/23/16 06/02/21 History release multivit with minerals-iron 18 1 tab PO QDAY 04/19/21 06/02/21 History mg-folic ac 400 mcg-vit K 25 mcg tablet (Adults Multivitamin) vitamin B complex 1 cap PO QDAY 04/19/21 06/02/21 History amlodipine 5 mg tablet 5 mg PO DAILY #30 tab 04/21/21 06/02/21 Rx sennosides 8.6 mg tablet (Senna 17.2 mg PO BID #60 tab 04/21/21 06/02/21 Rx Lax) aspirin 325 mg tablet 650 mg PO QDAY tab 05/22/21 06/02/21 History razbpdb-pmyuzckrrthuu-oeexlcgx PO 05/22/21 06/02/21 History [Excedrin Migraine] clemastine 2.68 mg tablet 2.68 mg PO QDAY PRN 05/22/21 06/02/21 History meloxicam 15 mg tablet 15 mg PO QDAY PRN 05/22/21 06/02/21 History oxycodone 5 mg tablet 5 mg PO QDAY PRN tab 06/02/21 06/05/21 History tizanidine 2 mg capsule 2 mg PO QDAY PRN cap 06/02/21 06/05/21 History Allergies Allergy/AdvReac Type Severity Reaction Status Date / Time No Known Drug Allergies Allergy Verified 06/02/21 14:26 EXAM Constitutional Vitals: Temp Pulse Resp BP Pulse Ox 36.4 C 63 16 167/95 95 06/05/21 15:35 06/05/21 20:30 06/05/21 15:35 06/05/21 20:31 06/05/21 20:30 General appearance: cooperative and no acute distress Head Head exam: Present atraumatic and normocephalic Eye Eye exam: Present EOMI and PERRL ENT ENT exam: Present mucous membranes moist, normal exam and normal external ear exam Neck Neck exam: Present normal inspection; Absent lymphadenopathy, tenderness or thyromegaly Respiratory Respiratory exam: Absent accessory muscle use, respiratory distress or wheezes Cardiovascular Cardiovascular exam: Present normal rate and rhythm; Absent JVD GI/Abdominal GI/Abdominal exam: Present normal bowel sounds and soft; Absent organomegaly or tenderness Rectal Rectal exam: Present deferred Extremities Exam Extremities exam: Present full ROM, normal capillary refill and normal inspection; Absent tenderness Neurological Exam Neurological exam: Present alert, CN II-XII intact and oriented X3; Absent motor sensory deficit Psychiatric Psychiatric exam: Present normal affect and normal mood; Absent anxious or depressed Skin Skin exam: Present dry and intact DATA Data Completed and Pending Labs: Labs from last 24 hours 06/05/21 06/05/21 18:20 18:20 WBC 11.8 H RBC 4.78 Hgb 15.1 Hct 43.9 MCV 91.8 MCH 31.6 MCHC 34.4 RDW 12.3 Plt Count 214 MPV 9.9 Neut % (Auto) 89.6 H Lymph % (Auto) 8.4 L [place] % (Auto) 1.4 Eos % (Auto) 0.3 Baso % (Auto) 0.3 Lymph # (Auto) 1.00 L [place] # (Auto) 0.16 Eos # (Auto) 0.04 Baso # (Auto) 0.03 Absolute Neutrophils 10.61 H Sodium 140 Potassium 4.4 Chloride 103 Carbon Dioxide 27 Anion Gap 10.0 BUN 13 Creatinine 0.9 GFR Calculation 78 Glucose 125 H Calcium 9.0 Total Bilirubin 0.6 AST 16 ALT 14 Alkaline Phosphatase 80 Total Protein 7.1 Albumin 4.1 Globulin 3.0 Albumin/Globulin Ratio 1.4 A/P Assessment and plan (1) Brain TIA: Status: Acute (2) Essential hypertension: Status: Chronic (3) Wedge compression fracture of t9-t10 vertebra, subsequent encounter for fracture with routine healing: Status: Chronic (4) Prediabetes: Status: Chronic (5) GERD (gastroesophageal reflux disease): Status: Chronic Narrative A/P Narrative: Assessment and Plans: 1. TIA: Observation med surg telemetry Neuro Chek q4hr NIH stroke scale qshift Physical therapy Occupational therapy 2D echocardiogram Aspirin Plavix Statin HgA1c screening Lipid panel 2. Essential HTN: Amlodipine Hydralazine 10mg IV q4-6hr PRN SBP>=180 and/or DBP>=110mmHg 3. Prediabetes: HgA1c SSI AC HS Accu Chek AC HS Hypoglycemia protocol Diabetic diet 4. GERD: Continue oral PPI from home regimen 5. Wedge compression fracture T9-10: Continue to monitor GI ppx: Continue to monitor DVT ppx: Lovenox Code status: Full Prognosis: Stable Disposition: observation med surg telemetry Time Spent With Patient Time: Total time spent is greater than 50% in coordination of care (as documented) at patient's floor/unit and/or counseling patient: Total time spent with greater than 50% in coordination of care (as documented) at patient's floor/unit and/or counseling patient:: Greater than 35 minutes
[2021-06-05] MEDS ORDERED: ONDANSETRON 4 MG/2 ML VIAL IV PRN (21:44)
[2021-06-05] MEDS ORDERED: DEXTROSE 31 GM ORAL.SUSP PO PRN (21:44)
[2021-06-05] MEDS ORDERED: IPRATROPIUM/ALBUTEROL 3 ML AMPUL.NEB NEB PRN (21:44)
[2021-06-05] MEDS ORDERED: ACETAMINOPHEN 325 MG TABLET PO PRN (21:44)
[2021-06-05] MEDS ORDERED: DEXTROSE 50% 50 ML VIAL IV PRN (21:44)
[2021-06-05] MEDS ORDERED: ATORVASTATIN 40 MG TABLET PO SCH (21:44)
[2021-06-05] MEDS ORDERED: ZOLPIDEM 5 MG TABLET PO PRN (21:44)
[2021-06-05] MEDS ORDERED: hydrALAZINE 20 MG/ML VIAL IV PRN (21:44)
[2021-06-05] MEDS ORDERED: SENNOSIDES 1 TABLET PO SCH (21:44)
[2021-06-05] MEDS ORDERED: tiZANidine 4 MG TABLET PO PRN (21:45)
[2021-06-05] MEDS ORDERED: MELOXICAM 7.5 MG TABLET PO PRN (21:49)
[2021-06-05] MEDS ORDERED: OMEPRAZOLE 20 MG CAPSULE PO PRN (21:51)
[2021-06-05] MEDS ORDERED: CLEMASTINE PO PRN (21:51)
[2021-06-05] MEDS: DOCUSATE SODIUM 100 MG CAPSULE PO SCH (21:57)
[2021-06-05] MEDS: 0.9 % SODIUM CHLORIDE 10 ML SYRINGE IV SCH (22:05)
[2021-06-05] MEDS: INSULIN LISPRO 1 UNIT/0.01 ML UNIT SQ SCH (22:13)
[2021-06-06] MEDS: INSULIN LISPRO 1 UNIT/0.01 ML UNIT SQ SCH ×2 (07:18→11:19)
[2021-06-06] MEDS: 0.9 % SODIUM CHLORIDE 10 ML SYRINGE IV SCH (07:18)
--- NOTE | 2021-06-06 08:01 | EKG ---
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
[2021-06-06] MEDS: DOCUSATE SODIUM 100 MG CAPSULE PO SCH (08:35)
[2021-06-06] MEDS ORDERED: MULTIVIT,THER IRON,CA,FA & MIN 1 TABLET PO SCH (09:00)
[2021-06-06] MEDS ORDERED: ASPIRIN 81 MG TAB.CHEW CHEWED SCH (09:00)
[2021-06-06] MEDS ORDERED: ENOXAPARIN 40 MG/0.4 ML SYRINGE SQ SCH (09:00)
[2021-06-06] MEDS ORDERED: CLOPIDOGREL 75 MG TABLET PO SCH (09:00)
[2021-06-06] MEDS ORDERED: VITAMIN B COMPLEX 1 CAPSULE PO SCH (09:00)
[2021-06-06] MEDS ORDERED: amLODIPine 5 MG TABLET PO SCH (09:00)
--- NOTE | 2021-06-06 11:25 | Discharge Summary ---
Discharge Provider Provider Patient information: Note initiated : 06/06/21 at 11:23 am Service Date, if different from initiated Date: [] Patient: Kelby Parra 86 y/o M admitted on 06/05/21 for left leg weakness. Chief Complaint: [] Date of admission: 06/05/21 21:38 Discharge date: 06/06/21 Primary care physician: Yunior Rosario DO Attending physician on admission: Yair Aleman Consults: 06/05/21 Consult to Physician [CONS] Stat Comment: Consulting Provider: Yair Aleman Reason For Exam: Physician to Consult Attending physician on discharge: Yair Aleman Discharge Meds Discharge Medications Home Medications omeprazole 20 mg tablet,delayed release 20 mg PO PRN PRN 08/23/16 [History Confirmed 06/06/21 Last Taken 05/26/21 20:00] multivit with minerals-iron 18 mg-folic ac 400 mcg-vit K 25 mcg tablet (Adults Multivitamin) 1 tab PO QDAY 04/19/21 [History Confirmed 06/06/21 Last Taken 06/05/21 07:00] vitamin B complex 1 cap PO QDAY 04/19/21 [History Confirmed 06/02/21 Last Taken Unknown] amlodipine 5 mg tablet 5 mg PO DAILY #30 tab 04/21/21 [Rx Confirmed 06/02/21 Last Taken Unknown] mwiudnp-obitiuewhnkrx-himwwejs [Excedrin Migraine] 1 tab PO 05/22/21 [History Confirmed 06/02/21 Last Taken 06/04/21 16:00] clemastine 2.68 mg tablet 2.68 mg PO QDAY PRN 05/22/21 [History Confirmed 06/02/21 Last Taken Unknown] meloxicam 15 mg tablet 15 mg PO QDAY PRN 05/22/21 [History Confirmed 06/06/21 Last Taken 05/29/21 20:00] oxycodone 5 mg tablet 5 mg PO TIDP PRN tab 06/02/21 [History Confirmed 06/06/21 Last Taken 06/05/21 10:00] tizanidine 2 mg capsule 2 mg PO TIDP PRN cap 06/02/21 [History Confirmed 06/06/21 Last Taken 06/05/21 10:00] Aspirin 81 mg PO DAILY #30 tab 06/06/21 [Rx Last Taken Unknown] atorvastatin 40 mg tablet 40 mg PO HS #30 tab 06/06/21 [Rx Last Taken Unknown] clopidogrel 75 mg tablet 75 mg PO DAILY #20 tab 06/06/21 [Rx Last Taken Unknown] COURSE Hospital Course Hospital course: Mr. Parra is a 86 year old M history of prediabetes, essential hypertensions, wedge compression fracture of T9-T10 vertebra, presenting with left leg numbness and weakness as well as dysphagia. Earlier today in the afternoon patients receiving outpatient spinal steroid injections for symptoms controlled for his regiment compression fracture of his T9-T10 vertebra. Right after the procedures, patient developed numbness and weakness of his left leg lasting for about an hour to an hour and a half, as well as aphasia for about 10 minutes before they resolve spontaneously. ABCD2 score of 6. Currently all her symptoms have been resolved. CT of the head without contrast did not show any acute intracranial pathologies. CTA of the head of the neck also did not show any stenosis of any of the arteries. Only to elevated risk factors, admission request were made for observations overnight for TIA. 06/06: NIHSS 0. All TIA symptoms resolved. No new focal neurological deficit. Will discharge home with Aspirin and Plavix for 3 weeks, together with statin. 2 week PCP follow up appointment made for him. All questions were answered prior to patient being physically discharged. Discharge diagnosis: TIA Time Spent with Patient Time attestation: Total time spent providing and/or coordinating discharge services: Time spent: Less than 30 minutes EXAM Constitutional Vitals: Temp Pulse Resp BP Pulse Ox 36.9 C 75 18 142/81 93 06/06/21 10:58 06/06/21 10:58 06/06/21 10:58 06/06/21 10:58 06/06/21 10:58 General appearance: cooperative and no acute distress Head Head exam: Present atraumatic and normocephalic Eye Eye exam: Present EOMI and PERRL ENT ENT exam: Present mucous membranes moist, normal exam and normal external ear exam Neck Neck exam: Present normal inspection; Absent lymphadenopathy, tenderness or thyromegaly Respiratory Respiratory exam: Absent accessory muscle use, respiratory distress or wheezes Cardiovascular Cardiovascular exam: Present normal rate and rhythm; Absent JVD GI/Abdominal GI/Abdominal exam: Present normal bowel sounds and soft; Absent organomegaly or tenderness Rectal Rectal exam: Present deferred Extremities Exam Extremities exam: Present full ROM, normal capillary refill and normal inspection; Absent tenderness Neurological Exam Neurological exam: Present alert, CN II-XII intact and oriented X3; Absent motor sensory deficit Psychiatric Psychiatric exam: Present normal affect and normal mood; Absent anxious or depressed Skin Skin exam: Present dry and intact Discharge Data Data Completed and Pending Labs on day of discharge: Labs from last 24 hours 06/05/21 06/05/21 06/05/21 18:20 18:20 18:20 WBC 11.8 H RBC 4.78 Hgb 15.1 Hct 43.9 MCV 91.8 MCH 31.6 MCHC 34.4 RDW 12.3 Plt Count 214 MPV 9.9 Neut % (Auto) 89.6 H Lymph % (Auto) 8.4 L [place] % (Auto) 1.4 Eos % (Auto) 0.3 Baso % (Auto) 0.3 Lymph # (Auto) 1.00 L [place] # (Auto) 0.16 Eos # (Auto) 0.04 Baso # (Auto) 0.03 Absolute Neutrophils 10.61 H Sodium 140 Potassium 4.4 Chloride 103 Carbon Dioxide 27 Anion Gap 10.0 BUN 13 Creatinine 0.9 GFR Calculation 78 Glucose 125 H Hemoglobin A1c 6.0 Estim Average Glucose 126 Calcium 9.0 Total Bilirubin 0.6 AST 16 ALT 14 Alkaline Phosphatase 80 Total Protein 7.1 Albumin 4.1 Globulin 3.0 Albumin/Globulin Ratio 1.4 Triglycerides 100 Cholesterol 183 LDL Cholesterol, Calc 112 H Non-HDL Cholesterol 131 H HDL Cholesterol 52 Discharge Plan Patient/Caregiver Discharge Instructions Activity: increase activity as tolerated Diet: Consistent Carbohydrate Instructions: Transient Ischemic Attack (GEN) Prescriptions: New Aspirin 81 mg PO DAILY Qty: 30 0RF atorvastatin 40 mg Tablet 40 mg PO HS Qty: 30 0RF clopidogrel 75 mg Tablet 75 mg PO DAILY Qty: 20 0RF Continued clemastine 2.68 mg tablet 2.68 mg PO QDAY PRN0RF Rx Instructions: give with food (meal/snack) [id number]-fetucdlvpatvu-efmdzohu [Excedrin Migraine] 1 tab PO 0RF meloxicam 15 mg tablet 15 mg PO QDAY PRN (Reason: Pain) 0RF oxycodone 5 mg tablet 5 mg PO TIDP PRN (Reason: Pain) 0RF tizanidine 2 mg capsule 2 mg PO TIDP PRN (Reason: Muscle Spasm) 0RF omeprazole 20 MG tablet,delayed release (DR/EC) 20 mg PO PRN PRN (Reason: reflux) 0RF vitamin B complex Capsule 1 cap PO QDAY 0RF Adults Multivitamin 18 mg iron-400 mcg-25 mcg Tablet 1 tab PO QDAY 0RF amlodipine 5 mg Tablet 5 mg PO DAILY Qty: 30 3RF Discontinued aspirin 325 mg tablet 650 mg PO QDAY 0RF Follow Up Plan Follow up with: Yunior Rosario DO [Primary Care Provider] - 06/11/21 10:00 am Patient Disposition: Home, Self-Care Rehab Potential: Good I certify that the patient requires SNF services: No Overall status at discharge: patient is back to baseline Discharge Orders: Discharge Order (Routine); Ordered 06/06/21 Ordered By: Yair CARY VTE Deep Vein Thrombosis/Pulmonary Embolism Present on Admission: No
== END 2021-06-06 12:37 | disposition home or self-care (01) ==
LOC: MEDSUR 15:34 → ED 15:34 → MEDSUR 21:40
PROVIDERS: ADMIT Internal Medicine; ATTEND Internal Medicine